=== PATIENT | male | born 1965 | race Caucasian/White ===

== ENCOUNTER 2022-10-16 20:10 | Emergency (ER) | payer BC, SELFPAY ==
[2022-10-16 20:50] VITALS: BP 131/89; PULSE 76; RESP 18; TEMP 36.9; O2SAT 96
[2022-10-16] MEDS: TETANUS/DIPHTH/PERTUSSIS 0.5 ML SYRINGE IM (21:25)
--- OUTSIDE RECORDS SUMMARY | 2022-10-16 21:28 | XMS_ITS | Clinical Summary ---
:1965 Author Organization [employer] [facility] [place] [address] Care Team Providers Name Role Phone Viki Reddy DO Primary Care Provider Allergies No known active allergies Medications Medication Sig Dispensed Refills Start Date End Date Status cloNIDine HCL (CATAPRES) Take 1 Tablet 60 Tablet 6 2022 Active 0.1 mg tabletIndications: (0.1 mg) by Essential hypertension mouth two times daily. dilTIAZem CD (CARDIZEM CD) Take 1 30 Capsule 6 2022 Active 180 mg extended release 24 Capsule (180 hr capsuleIndications: mg) by mouth Essential hypertension once daily. hydroCHLOROthiazide 50 mg Take 1 Tablet 30 Tablet 6 2022 Active tabletIndications: (50 mg) by Essential hypertension mouth once daily. FLUoxetine (PROZAC) 20 mg Take 1 30 Capsule 1 2022 Active capsuleIndications: Capsule (20 Depression, major, single mg) by mouth episode, moderate (HC) every morning. lisinopriL (PRINIVIL; Take 1 Tablet 60 Tablet 6 2022 Active ZESTRIL) 30 mg (30 mg) by tabletIndications: mouth two Essential hypertension times daily. ergocalciferol (VITAMIN Take 1 48 Capsule 0 08/23/2022 Active D2; DRISDOL) 50,000 unit Capsule capsuleIndications: (50,000 Vitamin D deficiency units) by mouth every Saturday and . Active Problems No known active problems Encounters Date Type Specialty Care Team Description 08/21/2022 Refill Viki Reddy DO Refil l Request 2022 Office Visit Viki Reddy, DO Medic ation Management (refills); Hype rtension; Elbow Pain/prob cinthia (Rt elbow ) 2022 Telephone Viki Reddy, DO Medic ation Management (lisinopriL ([place] INIVIL; ZESTRIL) 30 mg tablet/) 2022 Travel from Last 3 Months Immunizations Name Administration Dates Next Due Influenza, IIV4 11/24/2020 Mumps 04/18/1979 Polio Virus, Unspecified 04/18/1979 Rubella 04/18/1979 Td (Age >=7 Years) 11/12/2006, 04/18/1979 Tdap 03/12/2016 Social History Tobacco Use Types Packs/Day Years Used Date Former Smoker 1.5 Quit: 03/09/20 19 Smokeless Tobacco: Never Used Tobacco Cessation: Counseling Given: Yes Alcohol Use Standard Drinks/Week Comments Yes 2 (1 standard drink = 0.6 oz pure alcoho l) Alcohol Habits Answer Date Recorded How often do you have a drink containing 4 or more times a w moapa 02/06/2019 alcohol? How many drinks containing alcohol do you have 1 or 2 02/06/2019 on a typical day when you are drinking? How often do you have six or more drinks on one Less than mo nthly 02/06/2019 occasion? Comment: Not asked Sex Assigned at Date Recorded Not on file Obstetrics History Last Filed Vital Signs Vital Sign Reading Time Taken Comments Blood Pressure 137/87 2022 8:10 AM CDT Pulse 58 2022 8:10 AM CDT Temperature 37.2 ??C (98.9 ??F) 12/08/2021 9:50 AM [employer] Respiratory Rate 16 03/26/2016 11:30 AM CDT Oxygen Saturation 100% 2022 8:10 AM CDT Inhaled Oxygen Concentration - - Weight 108.3 kg (238 lb 11.2 oz) 2022 8:10 AM CDT Height 186 cm (6' 1.23) 12/08/2021 9:50 AM [employer] Body Mass Index 31.3 12/08/2021 9:50 AM [employer] Plan of Treatment Health Maintenance Due Date Last Done Comments COVID-19 vaccine series (#1) 02/17/1966 Hepatitis C screening for age 0908/20/1983 18-79 Zoster (shingles) series for age 0908/20/2015 50+ (1 of 2) Influenza for age 50-64 07/26/2022 11/24/2020 BMI (ht and wt on same day) for 12/08/2022 12/08/2021, 12/26, age 18+ 11/03/2018, Additional history exists Depression screening for age 12+ 08/21/2023 08/21/2022, , 2022, Additional history exists Tetanus booster 03/12/2026 03/12/2016, 11/12/2006, 04/18/1979 Colonoscopy through age 75 03/26/2026 03/26/2016 Lipids for age 45-75 12/08/2026 12/08/2021, 10/25/2020, 01/06/2020, Additional history exists Tdap Completed 03/12/2016 Procedures Procedure Name Priority Date/Time Associated Diagnosis Comme nts BASIC METABOLIC Routine 2022 8:49 AM Essential Result s for this PANEL CDT hypertension procedure are i n the results section. VITAMIN D 25 Routine 2022 8:49 AM Vitamin D deficiency R esults for this (DEFICIENCY) CDT procedure are i n the results section. from Last 3 Months Results (ABNORMAL) VITAMIN D 25 (DEFICIENCY) (2022 8:49 AM CDT) Analysis Performed At Patho logist Time Signature VITAMIN D 21.5 (L) 30.0 - 2022 [facility] TOTAL 80.0 ng/mL 7:48 PM CDT LABORATORY[facility] Specimen Anatomical Collection Method / Collection Time Recei rafael Time (Source) Location / Volume Laterality Blood BLOOD SPECIMEN / Venipuncture / 2022 8:49 2021 8:50 Unknown Unknown AM CDT AM CDT Narrative [facility] 2022 7:48 PM CDT Deficiency: ? <20 ng/mL Insufficiency: ?20-29 ng/mL Sufficiency: ?30-80 ng/mL Possible Toxicity: ??>80 ng/mL Based on [place] [facility] recommend ations Viki Reddy DO SEND OUTS Performing Organization Address City/State/ZIP Code Phon e Number [facility] [address] [place] [address] LAB[facility] LABORATORY (ABNORMAL) BASIC METABOLIC PANEL (2022 8:49 AM CDT) Analysis Performed At Patho logist Time Signature SODIUM 134 (L) 135 - 145 2022 [facility] mmol/L 7:31 PM CDT [facility] POTASSIUM 4.4 3.5 - 5.0 2022 [facility] mmol/L 7:31 PM CDT [facility] CHLORIDE 99 98 - 110 2022 [facility] mmol/L 7:31 PM CDT [facility] CO2,TOTAL 31 21 - 31 2022 [facility] mmol/L 7:31 PM CDT [facility] ANION GAP 4 (L) 5 - 18 2022 [facility] 7:31 PM CDT [facility] GLUCOSE 110 (H) 65 - 100 2022 [facility] mg/dL 7:31 PM CDT [facility] CALCIUM 9.8 8.5 - 10.5 2022 [facility] mg/dL 7:31 PM CDT [facility] BUN 22 8 - 25 2022 [facility] mg/dL 7:31 PM CDT [facility] CREATININE 0.79 0.72 - 2022 [facility] 1.25 mg/dL 7:31 PM CDT [facility] BUN/CREAT RATIO 28 (H) 10 - 20 2022 [facility] 7:31 PM CDT [facility] eGFR >90 >90 2022 [facility] mL/min/1.7 7:31 PM CDT LAB[facility]ATORY-[facility] 3m2 TRAL LABORATORY Comment: As of 2022, eGFR is calcu lated by the CKD-EPI creatinine equation without race adjustment. eGFR can be inf luenced by muscle mass, exercise, and diet. The reported eGFR is an estimation only and is only applicable if the renal function is stable. Specimen Anatomical Collection Method / Collection Time Recei rafael Time (Source) Location / Volume Laterality Blood BLOOD SPECIMEN / Venipuncture / 2022 8:49 2021 8:50 Unknown Unknown AM CDT AM CDT Viki Shahid Barry DO CHEMISTRY Performing Organization Address City/State/ZIP Code Phon e Number [facility] [address] [place] [address] LAB[facility] LABORATORY from Last 3 Months Insurance Payer Benefit Plan / Subscriber ID Effective Dates Phone Addre ss Type Group [employer] [employer] [id number] 2016-Presen [address] [address] [place] [address] [employer] [id number] 2017-Prese [address] [address] [place] [address] [employer] [id number] 2015-Present [address] [place] [address] [employer] [id number] 2021-Present [address] [address] [place] [address] Dionicio Fish Personal/Famil Self 1965 [phone] (Home) [place] [address] [employer] Workers Comp Self 1965 [phone] (Home) [place] [address] [employer]Magan nguyễny Workers Comp Self 1965 [phone] (Home) [place] [address] [employer] Employer 11/25/1900 [phone] [address] [facility] [address] (Home) [place] [address] [employer] Employer 11/25/2000 [phone] ATTN A/ P ADVANT[employer] [facility] (Home) [address] [place], [place] [address] Advance Directives Latest Code Status on File Code Status Date Activated Date Inactivated Comments Full Code 03/26/2016 9:57 AM 03/26/2016 1:44 PM Care Teams Surveyor Helper Rod Relationship Specialty Start Date End Date Viki Reddy DO PCP - General Family Practice 08/18/20 [address] [place] [address]
--- OUTSIDE RECORDS SUMMARY | 2022-10-16 21:28 | XMS_ITS | Clinical Summary ---
:1965 Author Organization [employer] Address [address] [address] Phone Care Team Providers Name Role Phone Unavailable Primary Care Provider Unavailable Allergies No known active allergies Medications Medication Sig Dispensed Refills Start Date End Date Status hydroCHLOROthiazide 25 Take 25 mg by 0 Active MG tablet mouth one time a day. LISINOPRIL OR Take by mouth. 0 A ctive HYDROcodone-acetaminophe Take 1-2 Tabs by 6 Tab 0 06/30/20 16 Active n (NORCO) 5-325 MG oral mouth every four tablet hours as needed for Pain. Limit acetaminophen to 4000 mg per day from all sources. Social History Tobacco Use Types Packs/Day Years Used Date Smoking Tobacco: Never Assessed Sex Assigned at Date Recorded Not on file Last Filed Vital Signs Vital Sign Reading Time Taken Comments Blood Pressure 157/102 06/30/2016 3:54 PM CDT Pulse 90 06/30/2016 3:54 PM CDT Temperature 36.6 ??C (97.9 ??F) 06/30/2016 3:54 PM CDT Respiratory Rate 16 06/30/2016 3:54 PM CDT Oxygen Saturation 96% 06/30/2016 3:54 PM CDT Inhaled Oxygen Concentration - - Weight - - Height - - Body Mass Index - - Plan of Treatment Not on file Insurance Payer Benefit Plan Subscriber ID Effective Phone Address Typ e / Group Dates [place] [id number] 2019-Prese [phone] [address] [id number] [place] [address]
--- OUTSIDE RECORDS SUMMARY | 2022-10-16 21:28 | XMS_ITS | Encounter Summary ---
:1965 Author Organization [employer] Address [address] [place] [address] Phone Care Team Providers Name Role Phone Unavailable Primary Care Provider Unavailable Reason for Visit Reason Comments Dental Pain Encounter Details Date Type Department Care Team Description 06/30/2016 Emergency [facility] Marquis Martin De ntal abscess (Primary Center Emergency DO Dx) Department [address] [facility] [address] [place] [address] [place] [address] [phone] Social History Tobacco Use Types Packs/Day Years Used Date Smoking Tobacco: Never Assessed Sex Assigned at Date Recorded Not on file documented as of this encounter Last Filed Vital Signs Vital Sign Reading Time Taken Comments Blood Pressure 157/102 06/30/2016 3:54 PM CDT Pulse 90 06/30/2016 3:54 PM CDT Temperature 36.6 ??C (97.9 ??F) 06/30/2016 3:54 PM CDT Respiratory Rate 16 06/30/2016 3:54 PM CDT Oxygen Saturation 96% 06/30/2016 3:54 PM CDT Inhaled Oxygen Concentration - - Weight - - Height - - Body Mass Index - - documented in this encounter Functional Status Functional Status Response Date of Assessment Patient's Vision Adequate to Safely Complete Daily No 06/30/2016 Activities Patient's Memory Adequate to Safely Complete Daily No 06/30/2016 Activities Cognitive Status Response Date of Assessment Patient's Judgment Adequate to Safely Complete Daily No 06/30/2016 Activities documented as of this encounter Discharge Instructions Discharge InstructionsMarquis Martin DO - 06/30/2016 4:46 PM CDT Follow up with dentistry. AttachmentsThe following attachments cannot be sent through Care Everywhere. DENTAL ABSCESS (BELARUSIAN)documented in this encounter Medications at Time of Discharge Medication Sig Dispensed Refills Start Date End Date hydroCHLOROthiazide 25 MG Take 25 mg by mouth 0 tablet one time a day. LISINOPRIL OR Take by mouth. 0 HYDROcodone-acetaminophen Take 1-2 Tabs by 6 Tab 0 04/2016 (NORCO) 5-325 MG oral mouth every four tablet hours as needed for Pain. Limit acetaminophen to 4000 mg per day from all sources. amoxicillin-clavulanate Take 1 Tab by mouth 20 Tab 0 04/201607/10/2016 (AUGMENTIN) 875-125 MG two times a day for oral tablet 10 days. documented as of this encounter Ordered Prescriptions Prescription Sig Dispensed Refills Start Date End Date HYDROcodone-acetaminop Take 1-2 Tabs by mouth 6 Tab 0 0 06/30/2016 hen (NORCO) 5-325 MG every four hours as oral tablet needed for Pain. Limit acetaminophen to 4000 mg per day from all sources. amoxicillin-clavulanat Take 1 Tab by mouth two 20 Tab 0 06/30/2016 07/10/2016 e (AUGMENTIN) 875-125 times a day for 10 MG oral tablet days. documented in this encounter Discharge Disposition Disposition Code Departure Means Destination Home and/or Self [place] documented in this encounter ED Notes Breanne Caraballo RN - 06/30/2016 4:59 PM CDT Chart accessed for routine audit Marquis Martin DO - 06/30/2016 4:48 PM CDTAssociated Order(s): DENTAL BLOCK Post-Procedure Diagnose(s): Dental abscess Patient: Dionicio Fish Means of Arrival: Walking Chief Complaint: Dental Pain History of Present Illness: HPI Patient is a pleasant 50 year old male who presented to the ED with concerns for left lower tooth pain. States that this started around , but has progressively been getting worse. No fevers or chills reported. States that pain is in his tooth and lower left jaw. Denies having pain similar to this in the past. No nausea, vomiting, fevers, or chills. Denies any new injury to tooth. Is here on vacation. States that pain is worse with chewing but has pretty much become constant. No other systemic complaints. Review of Systems: Review of Systems A 10 point review of systems was performed and all other systems were reviewed and negative unless noted above. No Known Allergies Prior to Admission Medication List Med List Status: Update Pending Ann Wick RN 06/30/2016 3:57 PM hydroCHLOROthiazide 25 MG tablet Take 25 mg by mouth one time a day. LISINOPRIL OR Take by mouth. Past Medical History: No past medical history on file. Past Surgical History: No past surgical history on file. Family History: No family history on file. Social History: He Exam: Initial Vitals Most Recent Vitals Temp: 97.9 ??F (36.6 ??C) (06/30/16 1554) Temp: 97.9 ??F (36.6 ??C) (06/30/16 1554) Pulse: 90 (06/30/16 1554) Pulse: 90 (06/30/16 1554) Resp: 16 (06/30/16 1554) Resp: 16 (06/30/16 1554) BP: (!) 157/102 (06/30/16 1554) BP: (!) 157/102 (06/30/16 1554) SpO2: 96 % (06/30/16 1554) SpO2: 96 % (06/30/16 1554) Visual Acuity: Physical Exam: Physical Exam GENERAL: Alert and oriented x 3, NAD HEENT: NC/AT. PERRLA, EOMFI. Nares patent bilaterally. There is pain involving examination around tooth #19. NECK: Supple, no JVD. Trachea midline. No lymphadenopathy CHEST: CTA bilaterally, no wheezes or rales HEART: RRR without murmur. No gallops or rubs. ABDOMEN: Soft/NT/ND/active bowel sounds x 4. EXTREMITIES: Distal pulses intact x 4. No peripheral edema. NEURO: CN II-XII grossly intact. Strength 5/5 in extremities x 4. Lab Results: No results found for this visit on 06/30/16. Imaging Results: Imaging Results None Emergency Department Course: Patient presenting with tooth pain in tooth #19. Afebrile and hemodynamically stable on admission. Noted to have exam consistent with abscess of this tooth. Otherwise dentition was fairly good. No significant facial swelling. Dental block performed as below. Re examined. Did not see area amenable to drainage. Prescription for abx and limited pain control after checking [place] prescription monitoring program. Follow up with dentistry recommended Procedures: Dental Block Date/Time: 07/01/2016 7:23 AM Performed by: MARQUIS MARTIN Authorized by: MARQUIS MARTIN Consent: Consent obtained: Verbal Consent given by: Patient Risks discussed: Allergic reaction and nerve damage Alternatives discussed: No treatment and referral Indications: Indications: dental abscess Location: Block type: Inferior alveolar Laterality: Left Procedure details (see MAR for exact dosages): Syringe type: Controlled syringe Needle gauge: 25 G Anesthetic injected: Bupivacaine 0.5% w/o epi Injection procedure: Anatomic landmarks identified, introduced needle, incremental injection, anatomic landmarks palpated and negative aspiration for blood Post-procedure details: Outcome: Anesthesia achieved Patient tolerance of procedure: Tolerated well, no immediate complications Assessment: (K04.7) Dental abscess (primary encounter diagnosis) Plan: Discharge Prescriptions Medication Sig Dispense Start Date End Date Auth. Provider HYDROcodone-acetaminophen (NORCO) 5-325 MG oral tablet Take 1-2 Tabs by mouth every four hours as needed for Pain. Limit acetaminophen to 4000 mg per day from all sources. 6 Tab 06/30/2016 Marquis Martin MD amoxicillin-clavulanate (AUGMENTIN) 875-125 MG oral tablet Take 1 Tab by mouth two times a day for 10 days. 20 Tab 06/30/2016 07/10/2016 Marquis Martin MD Discharged to home. ED Course MDM Marquis Martin MD 07/01/16 0728 Libby Londono RN - 06/30/2016 4:05 PM CDT Pt states that he is suppose to have a crown placed on . States that over the last 24 hours that his mouth pain has gotten worse and that he is having swelling to same. documented in this encounter Plan of Treatment Not on filedocumented as of this encounter Procedures Procedure Name Priority Date/Time Associated Diagnosis Comme nts DENTAL BLOCK 07/01/2016 7:28 AM Dental abscess Results for this CDT procedure are i n the results section . documented in this encounter Results DENTAL BLOCK (07/01/2016 7:28 AM CDT) Narrative Marquis Martin, - 07/01/2016 7:28 A M CDT Marquis Martin MD ? 07/01/2016 ??7:28 AM Dental Block Date/Time: 07/01/2016 7:23 AM Performed by: MARQUIS MARTIN Authorized by: MARQUIS MARTIN Consent: ??Consent obtained: ??Verbal ??Consent given by: ??Patient ??Risks discussed: ??Allergic reaction and nerve damage ??Alternatives discussed: ??No treatmen t and referral Indications: ??Indications: dental abscess ?? Location: ??Block type: ??Inferior alveolar ??Laterality: ??Left Procedure details (see MAR for exact dos ages): ??Syringe type: ??Controlled syringe ??Needle gauge: ??25 G ??Anesthetic injected: ??Bupivacaine 0. 5% w/o epi ??Injection procedure: ??Anatomic landm arks identified, introduced needle, incremental injection, anatomic landmark s palpated and negative aspiration for blood Post-procedure details: ??Outcome: ??Anesthesia achieved ??Patient tolerance of procedure: ??Quirino erated well, no immediate complications Marquis Martin DO PROCEDURE/MINOR FARZANEH ORDERABL ES documented in this encounter Visit Diagnoses Diagnosis Dental abscess - Primary Periapical abscess without sinus documented in this encounter Historical Medications This list may reflect changes made after this encounter. Medication Sig Dispensed Refills Start Date End Date LISINOPRIL OR Take by mouth. 0 hydroCHLOROthiazide 25 MG Take 25 mg by 0 tablet mouth one time a day. added in this encounter
--- NOTE | 2022-10-16 21:41 | ED.GENADULT ---
HPI - General Adult General Date Seen: 10/16/22 Chief complaint: Laceration/Wound Stated complaint: Right Hand Injury - Slipped on Ice Time Seen by Provider: 10/16/22 21:08 Source: patient Mode of arrival: ambulatory Limitations: no limitations History of Present Illness HPI narrative: Patient is a 57-year-old male who was walking outside taking his garbage cans to the curb when he slipped on the ice and fell injuring his right middle finger. He believes he got smashed between the pavement and the handle of the garbage can. It bled profusely from under the nail and from a laceration along the side of the right 3rd fingernail. He was reluctant to come to the emergency department but his insisted. Last tetanus shot was more than 10 years ago. Review of Systems Narrative: He has chronic pain in his knees and low back from previous injuries and surgery. Review of systems is otherwise unremarkable. PFSH PFSH Social History Smoking Status: Former smoker Do you use any of these nicotine containing products: None Second hand tobacco smoke exposure: No How often do you have a drink containing alcohol: monthly or less How often do you have six or more drinks on one occasion: Never AUDIT-C Alcohol total score: 1 Non-prescribed substance use: denies use service: No Exam Narrative: Exam Narrative: Examination is limited to the right upper extremity. Has laceration involving the dorsal aspect of the right 3rd finger along the thenar side of the nail and into the pulp. This is full skin thickness and will need to be repaired. Normal range of motion at the PIP and DIP joint. Good distal sensation. No tendon involvement. Const: Vital Signs, click to edit/add: Vital Signs - 24 hr 10/16/22 20:50 Temperature 98.5 F Pulse Rate [Left P ulse Oximeter] 76 Respiratory Rate 18 Blood Pressure [Le ft Upper Arm] 131/89 Pulse Oximetry 96 Oxygen Delivery Me thod Room Air Course Course Hospital Course: Patient seen and examined. Tdap is given. The wound obviously needs suturing and he is agreeable. The wound is prepped and draped in sterile fashion, scrubbed with a Betadine solution, anesthetized with 1% lidocaine. The laceration is closed with five simple interrupted sutures of 5.0 ethylon. Good wound edge approximation and hemostasis are achieved. Is dressed with bacitracin and a Band-Aid. Estimated blood loss is less than 2 mL. He tolerated this well. Vital Signs Vital signs: Initial Vital Signs Temperature 98.5 F 10/16/22 20:50 Temperature Source Temporal Artery Scan 10/16/22 20:50 Pulse Rate 76 10/16/22 20:50 Pulse Rhythm 10/16/22 20:50 Respiratory Rate 18 10/16/22 20:50 Blood Pressure 131/89 10/16/22 20:50 Blood Pressure Mean 103 10/16/22 20:50 Blood Pressure Position Sitting 10/16/22 20:50 Pulse Oximetry 96 10/16/22 20:50 Oxygen Delivery Method 10/16/22 20:50 Vital Signs Temperature 98.5 F 10/16/22 20:50 Pulse Rate 76 10/16/22 20:50 Respiratory Rate 18 10/16/22 20:50 Blood Pressure 131/89 10/16/22 20:50 Pulse Oximetry 96 10/16/22 20:50 Oxygen Delivery Method 10/16/22 20:50 Temperature 98.5 F 10/16/22 20:50 Pulse Rate 76 10/16/22 20:50 Respiratory Rate 18 10/16/22 20:50 Blood Pressure 131/89 10/16/22 20:50 Pulse Oximetry 96 10/16/22 20:50 Oxygen Delivery Method 10/16/22 20:50 Discharge Plan Discharge Clinical Impression: Finger laceration Patient Disposition: Home, Self-Care Condition: Improved Additional Instructions: Keep wound clean, dry, protected. Ice and elevation will help tonight. Ibuprofen or Tylenol for pain. Sutures out in 10 days. Watch for signs of infection. Follow Up/Referrals: Viki Reddy DO [Primary Care Provider] - Stand Alone [facility]: [facility] Instructions
== END 2022-10-16 21:50 | disposition home or self-care (01) ==
PROVIDERS: Emergency Provider Family Medicine; PCP Family Medicine
DX: S61.212A Laceration without foreign body of right middle finger without damage to nail, initial encounter (principal); W26.9XXA Contact with unspecified sharp object(s), initial encounter; W00.9XXA Unspecified fall due to ice and snow, initial encounter
CPT/HCPCS: 12001; 90471; 90715; 99282; 99283